=== PATIENT | male | born 1970 | race Caucasian/White ===

== ENCOUNTER 2017-02-20 18:06 | Emergency (ER) | payer OTHER ==
--- NOTE | ~2017-02-20 | CR108 ---
[facility] A Service of [facility] & [facility] RADIOLOGY TEXT RESULTS PATIENT: GRAHAM RUSSELL LOCATION: SED : 70 UNIT #: [id number] AGE: [address]: NICOLE PEREZ SEX: M ORDER DR: [id number] [place] [id number] E MR#: [id number] Acc #: [id number] NAME: GRAHAM RUSSELL : 1970 SEX: M STUDY DATE/TIME: 02/20/2017 18:59 UNIT: SED ROOM: STUDY DESCRIPTION: CR Finger 2 View 2nd Lt Attending Physician: Nicole Perez A.P.R.N. Ordering Physician: Nicole Perez A.P.R.N. Primary Care Physician: Jonny Brooks M.D. MEDICAL IMAGING REPORT This report is preliminary unless electronic signature is present. Left second digit, 2 views. HISTORY Animal bite to fingertip today. FINDINGS 2 views of the left second digit demonstrate normal bone alignment. No fracture, joint space narrowing, or abnormal sclerosis. No opaque soft tissue foreign body. IMPRESSION Negative left second digit. Dictated by... Yann Deleon M.D. THIS IS AN ELECTRONICALLY VERIFIED REPORT Yann Deleon M.D. at 02/20/2017 10:50 PM AIMEE/erlin TD: 02/20/2017 21:16 JOB #: [id number] MEDICAL IMAGING REPORT Page 1 of 1
[~2017-02-20 18:06] MED LIST: AMBIEN10 MG; AUGMENTIN PO; BACITRAYCIN PLU28 GM TOP; BACTRIM DS TABL1 TA1 PO; BROMFED DM COU118 ML PO; CHOLESTEROL MED; DIAZEPAM PO; FLEXERIL PO; FLEXERIL10 MG; FLEXERIL10 MG PO; IBUPROFEN800 MG PO; IMITREX5 MG; LORTAB 5/500 TA1 TA1 PO; MEDROL DOSEPAK4 MG DOB; MEDROL PO; MEDROL4 MG/DOSE- PO; NEURONTIN300 MG; NO MEDICATIONS; NORCO 10-325 TA1 TAB PO; NORCO 10/3251 TAB; NORCO 10/3251 TAB DOB; PAXIL PO; PEN-VEE K PO; PERCOCET 7.5-31 EACH; PERIDEX480 ML PO; PRAVASTATIN SOD40 MG; PROAIR HFA8.5 GM INH; TRAMADOL HCL50 M2 PO; TRAZODONE; VISTARIL PO
== END 2017-02-20 20:06 | disposition home or self-care (01) ==
LOC: SED 18:06
DX: S61.452A Open bite of left hand, initial encounter (principal); F17.200 Nicotine dependence, unspecified, uncomplicated; W53.11XA Bitten by rat, initial encounter; Y92.512 Supermarket, store or market as the place of occurrence of the external cause
CPT/HCPCS: 73140; 90471; 90715; 99283